=== PATIENT | female | born 1965 | race Caucasian/White ===

== ENCOUNTER → 2019-09-22 17:22 | Outpatient (CLI) | payer OTHER, SELFPAY ==
--- NOTE | 2019-09-22 17:26 | DI.RAD.S_ITS ---
PROCEDURE: XR KNEE LT 3V INDICATIONS: PAIN IN LEFT KNEE TECHNIQUE: 3 views of the knee were acquired. COMPARISON: None. FINDINGS: Bones: No fractures or dislocations. No suspicious bony lesions. Soft tissues: No joint effusion. No suspicious soft tissue calcifications. IMPRESSION: Normal for age, source of current pain symptoms is not seen. Dictated by: Ilya Ramirez M.D. on 09/23/2019 at 9:45 Approved by: Ilya Ramirez M.D. on 09/23/2019 at 9:45
== END ==
PROVIDERS: PCP Physician Assistant; Referring Provider Physician Assistant; Visit Provider Physician Assistant
DX: M25.562 Pain in left knee (principal)
CPT/HCPCS: 73562

== ENCOUNTER → 2020-01-02 13:36 | Outpatient (CLI) | payer OTHER, SELFPAY ==
--- NOTE | 2020-01-02 | DI.US.S_ITS ---
ULTRASOUND OF RIGHT BREAST AND AXILLA: 01/02/2020 CLINICAL: Palpable right breast lump. Comparison is made to exams dated: 01/02/2020 mammogram - [facility], 04/22/2019 ultrasound, 04/13/2019 mammogram, 12/23/2017 mammogram - [facility], and 10/17/2014 localization. Color flow and real-time ultrasound of the right breast axilla were performed. Mata scale images of the real-time examination were reviewed. There are several benign cysts in the right breast that were visualized during evaluation of the palpable breast mass described below. No image documentation obtained. These correlate with mammographic findings over the years. There is a 1.9 cm x 2.1 cm x 1.5 cm irregular partially solid mass with a circumscribed margin in the right breast at 8 o'clock posterior depth 9 cm from the nipple. This irregular solid/cystic mass is hypoechoic with no posterior acoustic shadowing or enhancement. This correlates as palpated, with mammography findings, and area of clinical concern. Color flow imaging demonstrates that there is vascularity present. No significant abnormalities were seen sonographically in the right axilla. IMPRESSION: SUSPICIOUS OF MALIGNANCY The 1.9 cm x 2.1 cm x 1.5 cm irregular solid/cystic mass in the right breast is at a high suspicion for malignancy. An ultrasound guided biopsy is recommended. Findings and recommendations were discussed with the patient by Dr. Floyd during today's visit. This exam was interpreted at Station ID: [id number]. Electronically Signed By: Rubin Hernandez M.D. aty/:01/02/2020 15:33:12 letter sent: Biopsy Required Ultrasound BI-RADS: 4c High suspicion of malignancy
--- NOTE | 2020-01-02 | DI.MG.S_ITS ---
UNILATERAL RIGHT DIGITAL DIAGNOSTIC MAMMOGRAM 3D/2D: 01/02/2020 CLINICAL: Right side mass. Comparison is made to exams dated: 04/13/2019 mammogram, 12/23/2017 mammogram, and 08/25/2014 mammogram - [facility]. The tissue of right breast is heterogeneously dense. This may lower the sensitivity of mammography. There are multiple presumed cysts in the right breast that are not significantly changed. Many of these have waxed and waned in size over the years. There are post operative changes in the right. There is a 2 cm irregular equal density mass in the right breast at 8 o'clock posterior depth. This is more prominent and increased in size and correlates as palpated, with area of clinical concern, and triangle skin marker. No other significant masses or calcifications are seen in the breast. IMPRESSION: INCOMPLETE: NEEDS ADDITIONAL IMAGING EVALUATION The 2 cm irregular equal density mass in the right breast is indeterminate. An ultrasound is recommended for further evaluation and is scheduled to immediately follow this study. This exam was interpreted at Station ID: [id number]. NOTE: For mammograms, a report in lay terms will be sent to the patient. Approximately 15% of breast malignancies will not be visualized mammographically. In the management of a palpable breast mass, a negative mammogram must not discourage biopsy of a clinically suspicious lesion. Electronically Signed By: Rubin Hernandez M.D. aty/:01/02/2020 15:01:26 ACR BI-RADS Category 0: Incomplete 3340F
== END ==
PROVIDERS: PCP Physician Assistant; Referring Provider Physician Assistant; Visit Provider Physician Assistant
DX: R92.8 Other abnormal and inconclusive findings on diagnostic imaging of breast (principal); N63.13 Unspecified lump in the right breast, lower outer quadrant
CPT/HCPCS: 76642; 77065; G0279

== ENCOUNTER → 2020-01-18 12:29 | Outpatient (CLI) | payer OTHER, SELFPAY ==
--- NOTE | 2020-01-18 | PATH_ITS ---
Note [facility] Accession Number: [id number] TESTS RESULT FLAG UNITS REF RANGE LAB Clinician Provided Cytology Information No. of containers..01 Other (Miscellaneous) 01 RIGHT BREAST DIAGNOSIS: 01 RIGHT BREAST NEGATIVE FOR MALIGNANT CELLS. FOAM CELLS AND RARE GROUP OF APOCRINE CELLS ARE PRESENT. COMMENT: The cytologic features are consistent with cyst contents; however, these findings require correlation with clinical and imaging studies. Pathologist ICD10: 01 N63.0 Dimple Ventura MD, Pathologist NPI- [id number] [employer] Programmer ([facility]) 01 0.5 CC, YELLOW, CLOUDY RECEIVED: FRESH IN 10 ML SYRINGE. /[facility] 01/19/2020 1032 Local FLAG LEGEND: L-Low Normal,H-High Normal,LL-Alert Low,HH-Alert High <-Panic Low,>-Panic High,A-Abnormal,AA-Critical Abnormal Performed at: 01 =Z [facility] [address], [place] [address] Ori Schaefer MD, Performed at: 01 [facility] [address], [place], [place] [id number] MD Ori Schaefer MD Phone: [phone]
--- NOTE | 2020-01-18 | PATH_ITS ---
[facility] Accession Number: [id number] . 01 Material submitted: . breast - RT BREAST 8:00 9 CMFN . 02 Diagnosis: Mass At 8 O'Clock, 9 CM From Nipple, Right Breast, Needle Core Biopsy: Papillary lesion; please see comment. No evidence of invasion by immunohistochemistry studies. No evidence of in-situ carcinoma by immunohistochemistry studies. [facility] 01/20/2020 1346 Local . 02 Comment: Immunohistochemistry studies demonstrate an absence of carcinoma in situ and an absence of invasive foci. However, these features can be focal in papillary lesions, and surgical extirpation is recommended, if clinically appropriate. . QA by Dr. Foreman. . 02 Electronically signed: . Melissa Gutierrez MD, Pathologist NPI- [id number] . 01 Gross description: . Received in formalin, labeled right breast biopsy, are multiple pieces of banda adipose tissue measuring 1.5 x 0.3 x 0.2 cm to 0.3 x 0.3 x 0.3 cm. All tissue is entirely submitted cassettes A1-A3. Cassette A1 contains three pieces; cassette A2 contains six pieces; cassette A3 contains six pieces. Collection date is 01/18/20, and the time is 8:00 for a total fixation time of approximately 16 hours. ([id number]) /R 01/19/2020 0227 Local . 02 Microscopic: . Immunohistochemical stains were performed on blocks A1, A2, and A3 in order to evaluate for ER, CK5/6, p63, and Myosin (SMMS-1), and the results are as follows. All control stains showed appropriate reactivity. . RESULTS: ER: Variably positive in regions of interest. CK5/6: Mosiac pattern in regions of interest. p63: Intact in regions of interest. Myosin (SMMS-1): Intact in regions of interest. . The variably positive ER and mosaic pattern of CK5/6 mitigates against the presence of in situ-carcinoma / atypia in this lesion. The diffuse presence of intact myosin and p63 immunostaining mitigates against invasive tumor. . * This test was developed and its performance characteristics determined by [facility]. It has not been cleared or approved by the U.S. Food and Drug Administration. The FDA has determined that such clearance or approval is not necessary. This test is used for clinical purposes. It should not be regarded as investigational or for research. . 02 Pathologist provided ICD-10: N63.0 . 02 CPT . 705489, A16645, B33444 Performed at: 01 [facility] [address] [place] [address], [place], [place] [id number] MD Ori Schaefer MD Phone: [phone] Performed at: 02 [facility] [place] [address] [place], [place] [id number] MD Bailey Foreman MD Phone: [phone]
--- NOTE | 2020-01-18 | DI.MG.S_ITS ---
UNILATERAL RIGHT DIGITAL DIAGNOSTIC MAMMOGRAM POST-NEEDLE BIOPSY: 01/18/2020 CLINICAL: Right breast mass. Comparison is made to exams dated: 01/02/2020 mammogram - [facility], 04/13/2019 mammogram, and 12/23/2017 mammogram - [facility]. The tissue of right breast is heterogeneously dense. This may lower the sensitivity of mammography. There is a marker clip in the appropriate position in the right breast at 8 o'clock middle depth. This marker clip placement is at the biopsy site. IMPRESSION: POST PROCEDURE MAMMOGRAM FOR MARKER PLACEMENT There was a successful marker clip placement in the right breast middle depth. This exam was interpreted at Station ID: [id number]. NOTE: For mammograms, a report in lay terms will be sent to the patient. Approximately 15% of breast malignancies will not be visualized mammographically. In the management of a palpable breast mass, a negative mammogram must not discourage biopsy of a clinically suspicious lesion. Electronically Signed By: Micky cummins/:01/18/2020 16:58:44 ACR BI-RADS Category Post-procedure mammogram for marker placement
--- NOTE | 2020-01-18 | DI.US.S_ITS ---
ULTRASOUND GUIDED BIOPSY RIGHT BREAST USING VACUUM DEVICE WITH MARKING DEVICE INSERTED: 01/18/2020 CLINICAL: Right breast mass. PATIENT CONSENT: Risks (minor bleeding, infection, vasovagal reaction and repeat procedure), benefits and alternatives were explained to the patient and written informed consent was obtained. Correlation is made to exams dated: 01/18/2020 mammogram, 01/02/2020 ultrasound, and 01/02/2020 mammogram - [facility]. An ultrasound guided biopsy using real-time ultrasound was performed for the irregular shaped mass located in the right breast at 8 o'clock middle depth. The skin was prepped in the usual manner. Local anesthetic was administered to the access site. A small incision was made in the breast. The abnormality was approached from the lateral aspect. Aspiration of the cystic component was performed and sent for cytology. A biopsy needle was placed into to the solid component under ultrasound guidance. Once the needle was documented to be in the correct location, five specimens were obtained using the Mammotome biopsy system. A clip was inserted into the biopsy cavity. The specimens were sent to the laboratory for pathological analysis. IMPRESSION: ULTRASOUND GUIDED BIOPSY BENIGN Ultrasound guided aspiration and biopsy of the cystic and solid mass in the right breast at 8 o'clock middle depth was successful. Pathology demonstrates a papillary lesion. Imaging findings are concordant. Surgical consultation is recommended for possible excision of this palpable lesion. This exam was interpreted at Station ID: [id number]. Micky cummins,slc/:01/24/2020 11:29:01
== END ==
PROVIDERS: PCP Physician Assistant; Referring Provider Physician Assistant; Visit Provider Physician Assistant
DX: N63.13 Unspecified lump in the right breast, lower outer quadrant (principal); N60.01 Solitary cyst of right breast; N64.89 Other specified disorders of breast
CPT/HCPCS: 19083; 77065

== ENCOUNTER → 2020-07-31 16:59 | Outpatient (CLI) | payer OTHER, SELFPAY ==
--- NOTE | 2020-07-31 | DI.MRI.S_ITS ---
PROCEDURE: MR ELBOW RT WO CON INDICATIONS: unspecified fracture of upper end of right humerus TECHNIQUE: Noncontrast coronal proton density fast spin echo and T2 fast spin echo with fat saturation, axial and sagittal T1 spin echo and T2 fast spin echo with fat saturation through the elbow. COMPARISON: [facility], MR, MR SHOULDER RT WO CON, 07/31/2020, 17:23. [facility], CR, XR ELBOW 3+ VIEWS RIGHT, 07/11/2020, 14:39. [facility], CR, XR HUMERUS RIGHT, 07/11/2020, 14:39. FINDINGS: Image quality: Excellent. Lateral structures: The lateral ulnar collateral ligament and radial collateral ligament both appear intact. The overlying common extensor tendon appears slightly attenuated with heterogeneous T2 hyperintense signal at its lateral epicondylar insertion suggestive of low-grade tendinosis/partial-thickness tear. Medial structures: The ulnar collateral ligament appears intact. The overlying common flexor tendon appears normal. The ulnar nerve appears normal in size and signal within the cubital tunnel. Anterior structures: The biceps and brachialis tendons both appear intact as they insert onto the proximal radius and ulna, respectively. No bicipitoradial bursal fluid. The median and radial neurovascular bundles appear normal; no focal muscle atrophy to suggest nerve impingement. Posterior structures: The conjoint triceps tendon from the long and lateral heads appears intact. The medial head of the triceps tendon also appears normal, with direct muscle insertion onto the olecranon. No olecranon bursal fluid. Bone and cartilage: No bone marrow contusions or fractures. No osteochondral injuries. IMPRESSION: 1. Distal biceps tendon and brachialis tendon are both intact. 2. Suggestion of mild tendinosis involving common extensor tendon origin at its insertion on lateral epicondyle. 3. Medial and lateral elbow ligaments are intact. 4. No marrow edema. No fracture or dislocation. No significant joint effusion. Dictated by: Arnie Davis M.D. on 08/01/2020 at 8:41 Approved by: Arnie Davis M.D. on 08/01/2020 at 8:48
--- NOTE | 2020-07-31 | DI.MRI.S_ITS ---
PROCEDURE: MR SHOULDER RT WO CON INDICATIONS: unspecified fraacture of upper end of right humerus TECHNIQUE: Noncontrast oblique coronal T2 fast spin echo with fat saturation, oblique sagittal T1 spin echo and T2 fast spin echo with fat saturation, axial T1 spin echo and T2 fast spin echo with fat saturation through the shoulder. COMPARISON: [facility], CR, XR HUMERUS RIGHT, 07/11/2020, 14:39. FINDINGS: Image quality: Excellent. Rotator cuff: Tendinosis and low-grade articular and bursal surface partial thickness tear involving distal supraspinatus at its insertion on the humeral head is seen. Distal infraspinatus tendinosis is also noted. Distal subscapularis tendon is grossly intact. No full-thickness rotator cuff tendon rupture. Sagittal images demonstrate mild supraspinatus muscle atrophy. Bones and bursae: There is marrow edema involving lateral portion of humeral head with a slightly displaced fracture through base of the greater tuberosity. No other marrow edema or fracture is seen. No dislocation. Mild to moderate acromioclavicular joint osteoarthritic changes are seen. the acromion demonstrates conventional anatomy, without an os acromiale. Small amount of joint fluid and subacromial subdeltoid bursal fluid is noted. Capsule and soft tissues: In the absence of intra-articular contrast, the labrum and glenohumeral ligaments appear intact. The long head of the biceps tendon demonstrates normal location and morphology. The rotator interval appears normal, without fibrosis. The coracohumeral ligament is normal in thickness. IMPRESSION: 1. Slightly displaced fracture through base of greater tuberosity with superior and lateral displacement of the fractured fragment and extensive surrounding edema. No other area of abnormal marrow signal is seen. Mild to moderate acromioclavicular joint osteoarthritis. Small amount of joint fluid and subacromial subdeltoid bursal fluid. 2. Distal supraspinatus and infraspinatus tendinosis at their insertions on the greater tuberosity. Low-grade articular and bursal surface partial thickness tear involving distal supraspinatus is also seen. Mild supraspinatus muscle atrophy. 3. No gross focal labral tear. Dictated by: Arnie Davis M.D. on 08/01/2020 at 8:37 Approved by: Arnie Davis M.D. on 08/01/2020 at 8:41
== END ==
PROVIDERS: PCP Physician Assistant; Referring Provider Orthopaedic Surgery; Visit Provider Orthopaedic Surgery
DX: S42.201A Unspecified fracture of upper end of right humerus, initial encounter for closed fracture (principal); M19.011 Primary osteoarthritis, right shoulder; S46.011A Strain of muscle(s) and tendon(s) of the rotator cuff of right shoulder, initial encounter; X58.XXXA Exposure to other specified factors, initial encounter
CPT/HCPCS: 73221

== ENCOUNTER → 2020-11-15 17:33 | Outpatient (CLI) | payer OTHER, SELFPAY ==
--- NOTE | 2020-11-15 | DI.RAD.S_ITS ---
PROCEDURE: XR HIP W PEL IF DONE LT 2V INDICATIONS: LEFT HIP PAIN TECHNIQUE: AP pelvis with lateral view(s) of the left hip(s). COMPARISON: None. FINDINGS: Bones: No fractures or dislocations. Pelvic ring appears intact. No suspicious bony lesions. Mild joint narrowing with periarticular osteophyte formation of the left and right hip joint. Degenerative disc and facet disease involves the inferior lumbar spine. Soft tissues: The visualized bowel gas pattern is normal. No suspicious soft tissue calcifications. IMPRESSION: Mild symmetric hip joint degeneration. Dictated by: Enrrique Jackson [facility] Interpreted: Carlito Flaherty MD on 11/16/2020 at 8:57 Approved by: Carlito Flaherty M.D. on 11/16/2020 at 10:21
== END ==
PROVIDERS: PCP Physician Assistant; Referring Provider Physician Assistant; Visit Provider Physician Assistant
DX: M25.552 Pain in left hip (principal); M16.0 Bilateral primary osteoarthritis of hip; M51.36 Other intervertebral disc degeneration, lumbar region
CPT/HCPCS: 73502

== ENCOUNTER → 2022-06-05 16:47 | Outpatient (CLI) | payer OTHER, SELFPAY ==
--- NOTE | 2022-06-05 16:48 | DI.MG.S_ITS ---
BILATERAL DIGITAL SCREENING MAMMOGRAM 3D/2D WITH CAD: 06/05/2022 CLINICAL: Routine screening. Family history of breast cancer. Comparison is made to exams dated: 04/13/2019 mammogram, 12/23/2017 mammogram - [facility], 01/18/2020 mammogram, 01/02/2020 mammogram - [facility], and 03/05/2020 mammogram - [facility]. Both breasts are heterogeneously dense, which may obscure small masses (category c / 51-75% glandular tissue). Current study was also evaluated with a Computer Aided Detection (CAD) system. There are benign post operative findings in the right breast. No significant masses, calcifications, or other findings are seen in either breast. There has been no significant interval change. IMPRESSION: BENIGN There is no mammographic evidence of malignancy. A 1 year screening mammogram is recommended. Based on the Tyrer Cuzick model (a risk assessment model) the patient's lifetime risk is 14.2% and her 10 year risk is 5.0%. According to the ACR, ACS, and NCCN guidelines, an annual breast MRI exam along with mammogram is recommended if the patient's lifetime risk is 20% or greater. This exam was interpreted at Station ID: [id number]. NOTE: For mammograms, a report in lay terms will be sent to the patient. Approximately 15% of breast malignancies will not be visualized mammographically. In the management of a palpable breast mass, a negative mammogram must not discourage biopsy of a clinically suspicious lesion. Electronically Signed By: Bear thrasher/erik:06/06/2022 12:51:00 letter sent: Normal Exam ACR BI-RADS Category 2: Benign Finding(s) 3342F
== END ==
PROVIDERS: PCP Physician Assistant; Referring Provider Physician Assistant; Visit Provider Physician Assistant
DX: Z12.31 Encounter for screening mammogram for malignant neoplasm of breast (principal); Z80.3 Family history of malignant neoplasm of breast
CPT/HCPCS: 77063; 77067

== ENCOUNTER → 2022-09-12 17:17 | Outpatient (CLI) | payer OTHER, SELFPAY ==
--- NOTE | 2022-09-12 17:22 | DI.RAD.S_ITS ---
PROCEDURE: XR CHEST 2V INDICATIONS: hot flashes/pneumonia due to infectious organism TECHNIQUE: 2 views of the chest were acquired. COMPARISON: None. FINDINGS: Surgical changes and devices: None. Lungs and pleura: Lungs are slightly hyperinflated but clear. No pleural effusions or pneumothorax. Mediastinum: Mediastinal contours are normal. Heart size is normal. Bones and chest wall: No suspicious bony abnormalities. Soft tissues appear unremarkable. IMPRESSION: No acute cardiopulmonary disease. Mild hyperinflation. Dictated by: Charla Ayala M.D. on 09/12/2022 at 20:31 Approved by: Charla Ayala M.D. on 09/12/2022 at 20:32
== END ==
PROVIDERS: PCP Physician Assistant; Referring Provider Physician Assistant; Visit Provider Physician Assistant
DX: J18.9 Pneumonia, unspecified organism (principal); R23.2 Flushing
CPT/HCPCS: 71046

== ENCOUNTER → 2023-07-28 17:30 | Outpatient (CLI) | payer OTHER, SELFPAY ==
--- NOTE | 2023-07-28 | DI.MG.S_ITS ---
BILATERAL DIGITAL SCREENING MAMMOGRAM 3D/2D WITH CAD: 07/28/2023 CLINICAL: Routine screening. Family history of breast cancer. Comparison is made to exams dated: 06/05/2022 mammogram - [facility], 04/13/2019 mammogram, and 12/23/2017 mammogram - [facility]. Both breasts are heterogeneously dense, which may obscure small masses (category c / 51-75% glandular tissue). Current study was also evaluated with a Computer Aided Detection (CAD) system. There are benign post operative findings in the right breast. No significant masses, calcifications, or other findings are seen in either breast. There has been no significant interval change. IMPRESSION: BENIGN There is no mammographic evidence of malignancy. A 1 year screening mammogram is recommended. Based on the Tyrer Cuzick model (a risk assessment model) the patient's lifetime risk is 14.0% and her 10 year risk is 5.2%. According to the ACR, ACS, and NCCN guidelines, an annual breast MRI exam along with mammogram is recommended if the patient's lifetime risk is 20% or greater. This exam was interpreted at Station ID: [id number]. NOTE: For mammograms, a report in lay terms will be sent to the patient. Approximately 15% of breast malignancies will not be visualized mammographically. In the management of a palpable breast mass, a negative mammogram must not discourage biopsy of a clinically suspicious lesion. Electronically Signed By: Evi nam/erik:07/29/2023 12:45:10 letter sent: Normal Exam ACR BI-RADS Category 2: Benign Finding(s) 3342F
== END ==
PROVIDERS: PCP Physician Assistant; Referring Provider Physician Assistant; Visit Provider Physician Assistant
DX: Z12.31 Encounter for screening mammogram for malignant neoplasm of breast (principal); Z80.3 Family history of malignant neoplasm of breast
CPT/HCPCS: 77063; 77067

== ENCOUNTER → 2024-06-08 13:43 | Outpatient (CLI) | payer OTHER, SELFPAY ==
--- NOTE | 2024-06-08 13:45 | DI.US.S_ITS ---
LIMITED ULTRASOUND OF RIGHT BREAST AND AXILLA: 06/08/2024 CLINICAL: Palpable right breast lump and focal pain. Comparison is made to exams dated: 06/08/2024 mammogram, 07/28/2023 mammogram, 06/05/2022 mammogram - [facility], 03/05/2020 specimen, and 03/05/2020 mammogram - [facility]. Color flow and real-time ultrasound of the right breast 7-10 o'clock, and axilla regions were performed. Mtaa scale images of the real-time examination were reviewed. There is a 0.8 cm x 0.7 cm x 0.6 cm round mass with a circumscribed margin in the right breast at 10 o'clock posterior depth 9 cm from the nipple. This round mass displays a well-defined boundary. This correlates as an incidental finding. Color flow imaging demonstrates that there is vascularity present. There also is a 0.6 cm x 0.5 cm x 0.3 cm oval complicated cyst in the right breast at 7 o'clock middle depth 3 cm from the nipple. This oval complicated cyst is hypoechoic with internal echoes. This correlates as an incidental finding. Color flow imaging demonstrates that there is no vascularity present. Additionally, there is a benign 2.5 cm x 2 cm x 1 cm oval simple cyst in the right breast at 8 o'clock anterior depth 1 cm from the nipple. This oval simple cyst is anechoic. This correlates with mammography findings. Color flow imaging demonstrates that there is no vascularity present. No significant abnormalities were seen sonographically in the right axilla. IMPRESSION: SUSPICIOUS The 0.8 cm x 0.7 cm x 0.6 cm round mass in the right breast at 10 o'clock posterior depth is at a low suspicion for malignancy. -An ultrasound guided biopsy is recommended. The 0.6 cm complicated cyst in the right breast at 7 o'clock middle depth is probably benign. -A follow-up ultrasound in 6 months is recommended. The 2.5 cm simple cyst in the right breast at 8 o'clock anterior depth is benign. No enlarged right axillary lymph nodes. Exam findings were discussed with the patient. This exam was interpreted at Station ID: [id number]. Electronically Signed By: Ad Sarabia M.D. [facility]/:06/08/2024 16:23:19 letter sent: Biopsy Required ACR BI-RADS Category 4A: Suspicious
--- NOTE | 2024-06-08 13:45 | DI.MG.S_ITS ---
BILATERAL DIGITAL DIAGNOSTIC MAMMOGRAM 3D/2D: 06/08/2024 CLINICAL: Right Breast Lump. Comparison is made to exams dated: 07/28/2023 mammogram, 06/05/2022 mammogram - [facility], and 04/22/2019 ultrasound - [facility]. The breasts are heterogeneously dense, which may obscure small masses (category c / 51-75% glandular tissue). No significant masses, calcifications, or other findings are seen in either breast. IMPRESSION: INCOMPLETE: NEED ADDITIONAL IMAGING EVALUATION No mammographic evidence of malignancy. A targeted ultrasound is recommended and will immediately follow. Based on the Tyrer Cuzick model (a risk assessment model) the patient's lifetime risk is 13.7% and her 10 year risk is 5.4%. According to the ACR, ACS, and NCCN guidelines, an annual breast MRI exam along with mammogram is recommended if the patient's lifetime risk is 20% or greater. This exam was interpreted at Station ID: [id number]. NOTE: For mammograms, a report in lay terms will be sent to the patient. Approximately 15% of breast malignancies will not be visualized mammographically. In the management of a palpable breast mass, a negative mammogram must not discourage biopsy of a clinically suspicious lesion. Electronically Signed By: Ad Sarabia M.D. slc/:06/08/2024 15:02:24 letter sent: Additional Imaging Needed ACR BI-RADS Category 0: Incomplete: Need Additional Imaging Evaluation
== END ==
PROVIDERS: PCP Physician Assistant; Referring Provider Physician Assistant; Visit Provider Physician Assistant
DX: N63.13 Unspecified lump in the right breast, lower outer quadrant (principal); N60.01 Solitary cyst of right breast; N64.4 Mastodynia; R92.333 Mammographic heterogeneous density, bilateral breasts
CPT/HCPCS: 76642; 77066; G0279

== ENCOUNTER → 2024-06-29 13:22 | Outpatient (CLI) | payer OTHER, SELFPAY ==
--- NOTE | 2024-06-29 | PATH_ITS ---
[facility] Accession Number: [id number] No. of containers..01 Tissue . 01 Material submitted: . breast - RIGHT BREAST 10:00 9 CMFN MASS . 01 Diagnosis: RIGHT BREAST 10 O'CLOCK, 9 CM FROM NIPPLE MASS, NEEDLE CORE BIOPSY: Intraductal papilloma with focal atypia. No invasive tumor identified. Please see comment. MRV 07/05/2024 1401 Local . 01 Comment: Immunohistochemistry studies demonstrate minute (less than 1 mm) regions of CK5/6-negative and ER strongly positive foci within the papilloma, consistent with epithelial atypia. No invasive tumor is identified. . This case was also reviewed by Dr. Floridalma Pham, who agrees with the interpretation. . Dr. Melissa Gutierrez discussed results with Dr. Red Sheets's Speech Pathology Assistant, on 07-05-24 at approximately 1:58 p.m. . 01 Electronically signed: . Melissa Gutierrez MD, Pathologist NPI- [id number] . 01 Gross description: . Received in formalin with two patient identifiers and US BX breast, are multiple yellow to banda soft tissue fragments admixed with hemorrhagic material aggregating to 2.1 x 1.8 x 0.2 cm. Inked black, and submitted entirely in A1. . The specimen was removed on 06/29/2024 at 1457 hours, time in formalin not provided. Cold ischemic time cannot be calculated. Total fixation time is approximately 26 hours. ([id number]) /MRV 06/30/2024 1622 Local . 01 Microscopic: . Immunohistochemical studies were performed to further evaluate the cells of interest. The control stains show appropriate reactivity. . RESULTS: Block A1 P63: Positive surrounding areas of interest. Positive within region of interest. Myosin: Positive around region of interest. Positive within region of interest. . The presence of both p63 and myosin surrounding and within the areas of interest mitigates against invasive carcinoma and intraductal papillary carcinoma. . CK5/6: Small, focal regions of diminished staining. ER: Focal diffuse, strong staining in regions of diminished CK5/6. . 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 . . * This test was developed and the performance characteristics were validated by [employer]. It has not been cleared or approved by the [place]. Food and Drug Administration. . 01 Pathologist provided ICD-10: N64.4, R92.8 . 01 CPT . E11162, C15674, 032950 Specimen Comment: A courtesy copy of this report has been sent to [phone] Performed at: [address] [id number] MD Ori Schaefer MD Phone: [phone]
--- NOTE | 2024-06-29 13:25 | DI.US.S_ITS ---
ULTRASOUND GUIDED BIOPSY RIGHT BREAST USING VACUUM DEVICE WITH MARKING DEVICE INSERTED AND POST MAMMOGRAPHIC AND ULTRASOUND IMAGIN06/29/2024 CLINICAL: Right breast mass. PATIENT CONSENT: Risks (minor bleeding, infection, vasovagal reaction and repeat procedure), benefits and alternatives were explained to the patient and written informed consent was obtained. Correlation is made to exams dated: 06/08/2024 ultrasound, 06/08/2024 mammogram, 07/28/2023 mammogram, and 06/05/2022 mammogram - [facility]. An ultrasound guided biopsy using real-time ultrasound was performed for the 8 mm circumscribed mass located in the right breast at 10 o'clock posterior depth 9 cm from the nipple. The skin was prepped in the usual manner. Local anesthetic was administered to the access site. A skin sandip was made in the breast. The abnormality was approached from the lateral aspect. A biopsy needle was placed adjacent to the abnormality under ultrasound guidance. Once the needle was documented to be in the correct location, a specimen was obtained using the Mammotome biopsy system. The patient received additional local anesthetic during the procedure. A clip was inserted into the biopsy cavity. A sterile dressing was applied to the access site. Post procedure mammographic and ultrasound imaging was obtained. The specimen was sent to the laboratory for pathological analysis. IMPRESSION: ULTRASOUND GUIDED BIOPSY HIGH RISK BENIGN Ultrasound guided biopsy of the 8 mm mass in the right breast at 10 o'clock posterior depth 9 cm from the nipple was successful. Pathology indicates high risk benign intraductal papilloma with atypia. Pathology results are concordant with imaging findings. A surgical consultation is recommended to discuss possible excisional biopsy. This exam was interpreted at Station ID: [id number]. Bobby Hernandez M.D. sd,aty/:07/06/2024 18:05:35
--- NOTE | 2024-06-29 13:25 | DI.MG.S_ITS ---
UNILATERAL RIGHT DIGITAL DIAGNOSTIC MAMMOGRAM 3D/2D POST-PROCEDURE IMAGING FOR MARKER PLACEMENT: 06/29/2024 CLINICAL: Post right breast ultrasound biopsy clip placement imaging. Comparison is made to exams dated: 06/08/2024 mammogram, 07/28/2023 mammogram, and 06/05/2022 mammogram - [facility]. The breasts are heterogeneously dense, which may obscure small masses (category c / 51-75% glandular tissue). There is a marker clip in the appropriate position in the right breast at 10 o'clock posterior depth 9 cm from the nipple. This is demonstrated by prior ultrasound and biopsy. This marker clip placement is at the biopsy site. This correlates with ultrasound findings and the biopsy. IMPRESSION: POST PROCEDURE MAMMOGRAM FOR MARKER PLACEMENT There was a successful marker clip placement in the right breast posterior depth corresponding to the biopsied mass. This exam was interpreted at Station ID: [id number]. NOTE: For mammograms, a report in lay terms will be sent to the patient. Approximately 15% of breast malignancies will not be visualized mammographically. In the management of a palpable breast mass, a negative mammogram must not discourage biopsy of a clinically suspicious lesion. Electronically Signed By: Bobby Siu M.D. sd/:07/06/2024 06:18:33 ACR BI-RADS Category Post-Procedure Mammogram for Marker Placement
== END ==
PROVIDERS: PCP Physician Assistant; Visit Provider Physician Assistant
DX: R92.8 Other abnormal and inconclusive findings on diagnostic imaging of breast (principal); D24.1 Benign neoplasm of right breast; N64.4 Mastodynia; R92.333 Mammographic heterogeneous density, bilateral breasts
CPT/HCPCS: 19083; 77065